=== PATIENT | male | born 1980 | race Caucasian/White ===

== ENCOUNTER 2025-11-01 10:27 | Outpatient (AMB) | payer OTHER, SELFPAY ==
[2025-11-01 10:30] VITALS: BP 128/83; PULSE 81; TEMP 36.6; BMI 27.4
--- NOTE | 2025-11-01 10:30 | A.PHYSOV ---
Vital Signs 11/01/25 10:30 Height 5 ft 7 in Weight 175 lb BMI 27.4 BP 128/83 Pulse 81 Temp 97.9 F Intake Visit Reasons: Right Lumbar Transforaminal epidural L5 Intake Note: Patient is a 45 year old male in office today for a Right L5 Transforaminal Epidural Injection. Allergies amoxicillin Allergy (Unknown, Verified 11/01/25 10:30) Unknown Penicillins Allergy (Unknown, Verified 11/01/25 10:30) Unknown [facility] Medical History (Updated 11/01/25 @ 10:39 by Irving Wei DO) Lumbar radiculitis Social History Household Members: Spouse Alcohol intake: current Alcohol intake frequency: does not drink Use of substances other than those prescribed or required for medical reasons: No Current occupational status: employed Current occupation: multimedia project manager Physical Exam Vital Signs: Last Vital Signs Temp 97.9 F 11/01/25 10:30 Pulse 81 11/01/25 10:30 BP 128/83 11/01/25 10:30 BMI result Body Mass Index 27.4 Office Procedures Procedure Details: Procedure performed: Right L5 transforaminal epidural steroid injection Preop diagnosis: Lumbar radiculitis Postop diagnosis: The same Anesthesia: Local After informed consent was obtained, patient was placed on the procedure table in a prone position. Skin over lumbosacral area was prepped and draped in usual sterile manner. Right L5 pedicle was visualized utilizing fluoroscopy. 3.5 inch 22 gauge spinal needle was introduced percutaneously and advanced towards the pedicle at about 6 o'clock position. Once level of neural foramina was reached, needle placement was verified utilizing 3 cc of Omnipaque contrast solution. Excellent flow through the neural foramina and epidural spread was identified without evidence of vascular uptake. Total volume of 6 cc containing 2 cc of 1% lidocaine, 40 mg of triamcinolone and normal saline solution were injected after negative aspiration for blood and cerebrospinal fluid. Radiation exposure was documented in the chart. Lumbar transforaminal Epidural Steroid Inj- use with FL Gd: 16832 - Single Procedure code (CPT) selection complete Office Meds Kenalog 40 mg/mL suspension for injection Performing Provider: Irving Wei DO Performing Location: [facility] Administered by: Irving Wei DO on 11/01/25 10:40 Dose Route Admin Location Dispensed Lot Number Expiration Date [facility] Hvac Technician 40 mg epidural 1 mL [id number] [employer] Total Dispensed Waste 1 mL 0 % lidocaine (PF) 10 mg/mL (1 %) injection solution Performing Provider: Irving Wei DO Performing [facility] Administered by: Irving Wei DO on 11/01/25 10:40 Dose Route Admin Location Dispensed Lot Number Expiration Date [facility] Hvac Technician 50 mg epidural 5 mL [id number] [facility] Total Dispensed Waste 5 mL 0 % Omnipaque 300 300 mg iodine/mL intravenous solution Performing Provider: Irving Wei DO Performing [facility] Administered by: Irving Wei DO on 11/01/25 10:40 Dose Route Admin Location Dispensed Lot Number Expiration Date [facility] Hvac Technician 3 mL epidural 10 mL [id number] [employer] Total Dispensed Waste 10 mL 70 % Assessment & Plan Assessment & Plan (1) Lumbar radiculitis: Code(s): M54.16 - Radiculopathy, lumbar region Category: Medical Plan Procedure Orders: Orders [place] Gd Lumbar Transforaminal In Today M54.16 - Radiculopathy, lumbar region AMB Lumbar transforaminal Epidural Steroid Injection Today M54.16 - Radiculopathy, lumbar region Coding Level of Care Code Procedure Only Diagnoses Lumbar radiculitis M54.16 CPT Codes Lumbar transforaminal Epidural Steroid I - CPT TRANSFORM: 12518 - Single ([id number])
== END 2025-11-01 11:16 | disposition home or self-care (01) ==
LOC: HO.HPHYS 10:27
PROVIDERS: Visit Provider Physical Medicine & Rehabilitation
DX: M54.16 Radiculopathy, lumbar region (principal)
CPT/HCPCS: 64483

== ENCOUNTER 2025-11-01 10:27 | Outpatient (REF) | payer OTHER, SELFPAY | END 2025-11-01 10:28 | disposition home or self-care (01) | LOC: HO.HPHYSR 10:27 | PROVIDERS: Visit Provider Physical Medicine & Rehabilitation | DX: M54.16 Radiculopathy, lumbar region (principal) | CPT/HCPCS: 64483; J2003; J3301; Q9967 ==